=== PATIENT | male | born 1945 | race Caucasian/White ===

== ENCOUNTER 2016-10-08 08:37 | Emergency (ER) | payer OTHER | END 2016-10-08 10:35 | disposition home or self-care (01) | LOC: ER1 08:37 | DX: M72.2 Plantar fascial fibromatosis (principal); I10 Essential (primary) hypertension | CPT/HCPCS: 99283 ==

== ENCOUNTER 2020-07-24 10:09 | Emergency (ER) | payer OTHER ==
[~2020-07-24 10:09] MED LIST: AUGMENTIN 875-1 EACH PO; COZAAR100 MG PO; DECADRON6 MG PO; FISH OIL 1,0001 EAC3 PO; FLOMAX 0.4 MG0.4 MG PO; HYDROCHLOROTHIA25 MG PO; NORCO 7.5-3251 EACH PO; NORVASC5 MG PO; PRAVACHOL80 MG PO; PROAIR HFA8.5 GM INH; VITAMIN D31000 UNI1 PO
[2020-07-24 11:27] LABS: HEMOGLOBIN 11.9 gm/dl (14.0-17.5); RED BLOOD COUNT 3.81 M/UL (4.20-5.50); WHITE BLOOD COUNT 3.3 K/UL (4.5-11.0)
[2020-07-24 11:49] LABS: BUN/CREATININE RATIO 23 (0-10)
[2020-07-24] MEDS ORDERED: ZOFRAN4 MG PO (12:26)
[2020-07-24] MEDS ORDERED: ZITHROMAX250 MG PO (12:26)
== END 2020-07-24 12:40 | disposition home or self-care (01) ==
LOC: ER1 10:09
PROVIDERS: Emergency Medicine
DX: R11.0 Nausea (principal); R91.8 Other nonspecific abnormal finding of lung field; I10 Essential (primary) hypertension; E78.5 Hyperlipidemia, unspecified; Z86.16 Personal history of COVID-19; Z86.018 Personal history of other benign neoplasm; Z90.49 Acquired absence of other specified parts of digestive tract
CPT/HCPCS: 71045; 80053; 81001; 82550; 82553; 83735; 83874; 84484; 85025; 93005; 96374; 99284; J2405

== ENCOUNTER 2020-07-30 08:51 | Emergency (ER) | payer OTHER ==
[~2020-07-30 08:51] MED LIST changes: +ZITHROMAX250 MG PO; +ZOFRAN4 MG PO
[2020-07-30] MEDS ORDERED: CITRATE OF MAG296 ML PO (10:09)
== END 2020-07-30 10:22 | disposition home or self-care (01) ==
LOC: ER1 08:51
DX: K59.00 Constipation, unspecified (principal); I10 Essential (primary) hypertension; Z90.49 Acquired absence of other specified parts of digestive tract; Z79.899 Other long term (current) drug therapy
CPT/HCPCS: 74018; 99283

== ENCOUNTER → 2020-09-20 | Outpatient (CLI) | payer OTHER ==
[~2020-09-20] MED LIST changes: +CITRATE OF MAG296 ML PO
== END ==
LOC: US 08:01
DX: R14.0 Abdominal distension (gaseous) (principal); K76.0 Fatty (change of) liver, not elsewhere classified; Z90.6 Acquired absence of other parts of urinary tract
CPT/HCPCS: 76700

== ENCOUNTER 2021-01-14 08:06 | Emergency (ER) | payer OTHER ==
[2021-01-14 10:19] LABS: HEMOGLOBIN 13.8 gm/dl (14.0-17.5); RED BLOOD COUNT 4.36 M/UL (4.20-5.50); WHITE BLOOD COUNT 3.2 K/UL (4.5-11.0)
[2021-01-14 10:38] LABS: BUN/CREATININE RATIO 18 (0-10)
== END 2021-01-14 12:50 | disposition home or self-care (01) ==
LOC: ER1 08:06
PROVIDERS: Physician Assistant
DX: R42 Dizziness and giddiness (principal); E78.5 Hyperlipidemia, unspecified; I10 Essential (primary) hypertension
CPT/HCPCS: 70450; 71045; 80053; 82550; 82553; 83874; 84484; 85025; 93005; 99284

== ENCOUNTER 2021-09-16 09:02 | Observation (INO) | payer OTHER ==
[~2021-09-16] VITALS: Ht 185.4 cm; Wt 97.5 kg
[~2021-09-16 09:02] MED LIST changes: -COZAAR100 MG PO; -FISH OIL 1,0001 EAC3 PO; +OMEGA-31000 MG PO
[2021-09-16 09:45] LABS: HEMOGLOBIN 14.5 gm/dl (14.0-17.5); RED BLOOD COUNT 4.67 M/UL (4.20-5.50); WHITE BLOOD COUNT 4.7 K/UL (4.5-11.0)
[2021-09-16 10:25] LABS: BUN/CREATININE RATIO 16 (0-10)
[2021-09-16] MEDS ORDERED: THERA-M CAPLET1 EACH PO (13:28)
[2021-09-16] MEDS ORDERED: COLACE100 MG PO (13:28)
[2021-09-16] MEDS ORDERED: CRESTOR20 MG PO (13:29)
[2021-09-16] MEDS ORDERED: KENALOG CREAM 080 GM TOP (13:31)
[2021-09-16] MEDS ORDERED: OXCARBAZEPINE150 MG PO (13:31)
[2021-09-16] MEDS ORDERED: VITAMIN D350 MCG PO (13:33)
[2021-09-16] MEDS ORDERED: OMEPRAZOLE40 MG PO (13:34)
[2021-09-16] MEDS ORDERED: PERCOCET 7.5-31 EACH PO (13:38)
[2021-09-16] MEDS ORDERED: LOPRESSOR 25 MG25 MG PO (13:39)
[2021-09-16 16:21] LABS: BUN/CREATININE RATIO 17 (0-10)
[2021-09-16 20:04] LABS: BUN/CREATININE RATIO 14 (0-10)
[2021-09-16] MEDS ORDERED: COZAAR100 MG PO (20:19)
[2021-09-17 01:35] LABS: BUN/CREATININE RATIO 15 (0-10)
[2021-09-17 04:32] LABS: HEMOGLOBIN 13.2 gm/dl (14.0-17.5); RED BLOOD COUNT 4.32 M/UL (4.20-5.50); WHITE BLOOD COUNT 3.7 K/UL (4.5-11.0)
[2021-09-17 04:58] LABS: BUN/CREATININE RATIO 15 (0-10)
--- NOTE | 2021-09-17 10:13 | NUR ---
REINFORCED THE NEED FOR PATIENT TO CALL OUT FOR BRP DUE TO HIS FX I TOLD HIM HE SHOULD NOT PUT WT ON HIS RIGHT FOOT WITHOUT SUPPORT, HE AGREES TO CALL OUT WHEN HE NEEDS HELP.
== END 2021-09-17 13:15 | disposition home or self-care (01) ==
LOC: ER1 09:02 → CDU 12:33 → MED SURG 4 14:50
PROVIDERS: Physician Assistant Medical; Preventive Medicine Occupational Medicine; ADMIT Internal Medicine
DX: R55 Syncope and collapse (principal); Z20.822 Contact with and (suspected) exposure to COVID-19; S82.401A Unspecified fracture of shaft of right fibula, initial encounter for closed fracture; E87.1 Hypo-osmolality and hyponatremia; D61.818 Other pancytopenia; I10 Essential (primary) hypertension; E78.5 Hyperlipidemia, unspecified; R00.1 Bradycardia, unspecified; D69.6 Thrombocytopenia, unspecified; Z79.899 Other long term (current) drug therapy; Z87.891 Personal history of nicotine dependence; X58.XXXA Exposure to other specified factors, initial encounter
CPT/HCPCS: ECHO; 0240U; 36415; 70450; 71045; 73600; 80048; 80053; 81001; 82140; 82550; 82553; 83605; 83690; 83735; 83880; 84484; 85025; 85027; 85652; 86140; 87086; 93005; 93306; 96374; 96375; 99285; C9113; G0378; J0696; J1335; J2405; Q9967

== ENCOUNTER 2022-01-13 11:11 | Emergency (ER) | payer OTHER ==
[~2022-01-13 11:11] MED LIST changes: +COLACE100 MG PO; +COZAAR100 MG PO; +CRESTOR20 MG PO; +KENALOG CREAM 080 GM TOP; +LOPRESSOR 25 MG25 MG PO; +OMEPRAZOLE40 MG PO; +OXCARBAZEPINE150 MG PO; +PERCOCET 7.5-31 EACH PO; +THERA-M CAPLET1 EACH PO; +VITAMIN D350 MCG PO
[2022-01-13 13:10] LABS: HEMOGLOBIN 14.1 gm/dl (14.0-17.5); RED BLOOD COUNT 4.52 M/UL (4.20-5.50); WHITE BLOOD COUNT 4.9 K/UL (4.5-11.0)
[2022-01-13 13:31] LABS: BUN/CREATININE RATIO 18 (0-10)
== END 2022-01-13 16:13 | disposition home or self-care (01) ==
LOC: ER1 11:11
DX: R19.7 Diarrhea, unspecified (principal); I10 Essential (primary) hypertension
CPT/HCPCS: 80053; 81001; 85025; 99284

== ENCOUNTER → 2022-01-17 | Outpatient (CLI) | payer OTHER | LOC: RAD 13:25 | DX: R19.7 Diarrhea, unspecified (principal) | CPT/HCPCS: 74018 ==

== ENCOUNTER → 2022-03-23 | Outpatient (CLI) | payer OTHER | LOC: KOH-I 13:52 | DX: M25.572 Pain in left ankle and joints of left foot (principal) | CPT/HCPCS: 73610 ==